=== PATIENT | male | born 1980 | race African-American/Black ===

== ENCOUNTER → 2018-03-13 | Outpatient (CLI) | payer OTHER | LOC: CAT 10:15 | DX: Z13.6 Encounter for screening for cardiovascular disorders (principal) ==

== ENCOUNTER → 2018-03-16 | Outpatient (CLI) | payer OTHER ==
[~2018-03-16] MED LIST: TRAZODONE HCL100 MG PO
--- NOTE | ~2018-03-16 | EXE ---
[facility] [address] [place] [address] STRESS ECHOCARDIOGRAM Name: GABE ALFONSO Room #: REG [facility]#: [id number] Admission: 03/16/18 Attend Phys: Yuri De La Torre MD Discharge: Date of : 84 Date of Service: 03/16/18 1509 Report #: [id number] THIS REPORT FOR: //name// APPROVED REPORT Study performed: 03/16/2018 13:49:05 Exam: Stress Echocardiogram Indication: Palpitations Patient Location: Echo lab Stress Nurse: Kathie Sharpe RN Status: routine Ht: 5 ft 7 in HR: 55 bpm BP: 144/92 mmHg Medical History Medical History: SOB Medications: No cardiac medications Allergies: No known drug allergies Cardiac Risk Factors: FHX of CAD Exercise History: Physically active Procedure The patient underwent an Exercise Stress Test using the Jovani Protocol. Blood pressure, heart rate, and EKG were monitored. An Echocardiogram was performed by civil cadd technician in four stages in quad fashion. At peak stress, four selected images were obtained and placed side by side with resting images for comparison. Stress Test Details Stress Test: Exercise stress testing was performed using a Jovani protocol. HR Resting HR: 57 bpm Max Heart Rate (APMHR): 185 bpm Max HR Achieved: 176 bpm Target HR (85% APMHR): 157 bpm % of APMHR: 95 Recovery HR: 91 bpm HR response to stress: Normal HR response to stress BP Resting BP: 144/92 mmHg Max BP: 140/75 mmHg Recovery BP: 140/[address] [facility] [address] [place] [address] STRESS ECHOCARDIOGRAM Name: GABE ALFONSO Room #: REG [facility]#: [id number] Admission: 03/16/18 Attend Phys: Yuri De La Torre MD Discharge: Date of : 84 Date of Service: 03/16/18 1509 Report #: [id number] Resting ECG: Sinus Rhythm Stress ECG: Sinus Rhythm, nonspecific ST-T abnormalities ST Change: Non-ischemic Maximum ST Deviation: 0.5 mm Clinical Reason for Termination: Maximal effort Stress Symptoms: none Exercise duration: 14 min 50 sec Highest Stage Achieved: Stage 5: 5.0 mph at 18% grade. Exercise capacity: 17.5 METs Pre-Stress Echo The resting Echocardiogram showed normal left ventricular contractility with an estimated Ejection Fraction of about 60-65%. Normal wall motion in all segments on baseline images. Post-Stress Echo The stress Echocardiogram showed normal left ventricular contractility with an estimated Ejection Fraction of about >70%. Normal augmentation of wall motion in all segments on post stress images. Clinical No clinical or ECG evidence for ischemia. Conclusion Clinical Response: Non-ischemic Exercise Capacity: Superior Stress ECG Response: Non-ischemic Stress Echo Images: Non-ischemic The left ventricle is normal in size and wall thickness in both the rest and stress images. Other Information Study Quality: Good <Conclusion> The left ventricle is normal in size and wall thickness in both the rest and stress images. <ELECTRONICALLY SIGNED> By: Yuri De La Torre MD 03/16/18 1509 1509 1509 Yuri De La Torre MD /INF
--- NOTE | ~2018-03-16 | 2DMMODE ---
[facility] [address] [place] [address] 2 D/M-MODE ECHOCARDIOGRAM Name: GABE ALFONSO Room #: REG [facility]#: [id number] Admission: 03/16/18 Attend Phys: Yuri De La Torre MD Discharge: Date of : 84 Date of Service: 03/16/18 1504 Report #: [id number] THIS REPORT FOR: //name// APPROVED REPORT Study performed: 03/16/2018 13:10:11 EXAM: Comprehensive 2D, Doppler, and color-flow Echocardiogram Patient Location: Echo lab Status: routine BSA: 1.91 BP: 144/92 mmHg Other Information Study Quality: Good Indications Dizziness and Vertigo Palpitations SOB 2D Dimensions RVDd: 37.53 mm LVEF(%): 67.52 (>50%) IVSd: 11.70 (7-11mm) LVOT Diam: 19.69 (18-24mm) LVDd: 47.01 mm PWd: 11.34 (7-11mm) Ascending Ao: 25.15 (22-36mm) LVDs: 29.38 (25-40mm) Aortic Root: 32.18 mm IVC: 17.00 mm Wren's LVEF: 67.52 % Volumes Left Atrial Volume (Systole) Single Plane 4CH: 36.11 mL Single Plane 2CH: 53.63 mL LA ESV Index: 25.00 mL/m2 Aortic Valve AoV Peak John.: 1.21 m/s AO Peak Gr.: 5.85 mmHg LVOT Max P.13 mmHg LVOT Max V: 0.88 m/s LORRIE Vmax: 2.22 cm2 Mitral Valve E/A Ratio: 1.6 [facility] [place] [place] [address] 2 D/M-MODE ECHOCARDIOGRAM Name: GABE ALFONSO Room #: [facility]#: [id number] Admission: 03/16/18 Attend Phys: Yuri De La Torre MD Discharge: Date of : 84 Date of Service: 03/16/18 1504 Report #: [id number] MV Decel. Time: 277.59 ms MV E Max John.: 0.68 m/s MV A John.: 0.43 m/s MV PHT: 80.50 ms IVRT: 106.11 ms Pulmonary Valve PV Peak John.: 0.91 m/s PV Peak Gr.: 3.31 mmHg Pulmonary Vein P Vein S: 0.51 m/s P Vein A: 0.23 m/s P Vein D: 0.51 m/s P Vein A Dur.: 124.6 msec P Vein S/D Ratio: 1.00 Tricuspid Valve RAP Estimate: 5.00 mmHg Left Ventricle The left ventricle is normal size. There is normal left ventricular wall thickness. The left ventricular systolic function is normal. The left ventricular ejection fraction is within the normal range. LVEF is 60-65%. The left ventricular diastolic function is normal. Right Ventricle The right ventricle is normal size. The right ventricular systolic function is normal. Atria The left atrium size is normal. The right atrium size is normal. Aortic Valve The aortic valve is normal in structure. No aortic regurgitation is present. There is no aortic valvular stenosis. Mitral Valve The mitral valve is normal in structure. Trace mitral regurgitation. No evidence of mitral valve stenosis. Tricuspid Valve The tricuspid valve is normal in structure. Trace tricuspid regurgitation. Unable to assess PA pressure. Pulmonic Valve The pulmonary valve is normal in structure. Mild pulmonic regurgitation. [facility] [address] [place] [address] 2 D/M-MODE ECHOCARDIOGRAM Name: GABE ALFONSO Room #: REG [facility]#: [id number] Admission: 03/16/18 Attend Phys: Yuri De La Torre MD Discharge: Date of : 84 Date of Service: 03/16/18 1504 Report #: [id number] Great Vessels The aortic root is normal in size. IVC is normal in size and collapses >50% with inspiration. Pericardium There is no pericardial effusion. <Conclusion> The left ventricle is normal size. There is normal left ventricular wall thickness. The left ventricular systolic function is normal. The left ventricular diastolic function is normal. The right ventricle is normal size. The left atrium size is normal. The right atrium size is normal. The aortic valve is normal in structure. Trace mitral regurgitation. Trace tricuspid regurgitation. <ELECTRONICALLY SIGNED> By: Yuri De La Torre MD 03/16/18 1504 1504 1504 Yuri De La Torre MD /INF
== END ==
LOC: CV 09:29
DX: R00.2 Palpitations (principal); R42 Dizziness and giddiness; R06.02 Shortness of breath

== ENCOUNTER 2018-03-18 07:52 | Inpatient (IN) | payer OTHER ==
[~2018-03-18] VITALS: Ht 170.2 cm; Wt 83.6 kg
--- NOTE | ~2018-03-18 | H ---
[facility] [place] [place] [address] HISTORY AND PHYSICAL Name: GABE ALFONSO Room #: 213-P [facility] [place] .R.#: [id number] Admission: 03/18/18 Attend Phys: Kristian Antoine MD, Discharge: 03/20/18 Date of : 84 Report #: [id number] THIS REPORT FOR: //name// CC: Kristian Taveras DATE OF SERVICE: 03/18/2018 HISTORY OF PRESENT ILLNESS: The patient is a 37-year-old black male. He has been seen by my partner, Dr. De La Torre and initially evaluated out earlier this month for some syncope, near syncopal events. Workup had so far included a normal echo and a normal stress echo. The patient for a few months had some post-micturition, near syncopal events, but had an event during the day not precipitated by any sort of straining or urination. I was called during the night with 7 second plus pauses at approximately 3 in the morning. This coincided when he got up and went to the bathroom, felt lightheaded, did urinate and then had to sit down as he nearly had bit of a jung out. He felt okay this morning. 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 The only medication he takes is trazodone at night. He has had a couple of other occurrences of this one while working and another episode watching soccer game. He otherwise has not been constitutionally sick and takes no AV node inhibiting medications. No significant alcohol, tobacco or drug use. ALLERGIES: No known drug allergies. PAST MEDICAL HISTORY: Positive for hypertriglyceridemia and a vasectomy and some recent history of post-micturition syncope and now near multiple recurrent presyncopal events. EKG, LVH with Q-waves in II and III, aVF. These were previously noted. FAMILY HISTORY: Negative for premature disease or sudden . REVIEW OF SYSTEMS: Negative except for as stated above. PHYSICAL EXAMINATION: VITAL SIGNS: Blood pressure 130/90, pulse 86. HEENT: Eyes reveal xanthelasmas. Pharynx is clear. NECK: Shows preserved upstrokes without JVD or bruits. LUNGS: Clear. CARDIOVASCULAR: Regular rate and rhythm. S1, S2. No murmur or gallop. There is a soft S4 noted. ABDOMEN: Soft. No HSM or abdominal bruit. No flank bruits. EXTREMITIES: No edema. Pulses were intact. MUSCULOSKELETAL: No gross joint deformity. [facility] [address] [place] [address] HISTORY AND PHYSICAL Name: GABE ALFONSO Sarita Room #: 213-P [facility]#: [id number] Admission: 03/18/18 Attend Phys: Kristian Antoine MD, Discharge: 03/20/18 Date of : 84 Report #: [id number] NEUROLOGIC: Intact. SKIN: Warm and dry without xanthoma or ulcer. ASSESSMENT: 1. Recurrent presyncopal/syncope. 2. History of intermittent heart block with 7+ second pauses noted on monitor. 3. Post-micturition syncope. 4. Cholesterol/triglyceridemia. RECOMMENDATIONS AND PLAN: We will place on a monitor. Initially, it sounds like this was a post-micturition issue, but now has been occurring without any straining or urination. He is becoming definitely symptomatic with this. Perhaps somewhat of a hypervagal but with him nearly multiple near falls and jung outs, permanent pacemaker would be indicated here in the backup mode. I will have electrophysiology service, Dr. Winchester see the patient and presumably proceed with permanent pacemaker Tuesday. Thank you for asking me to assist in the care of this patient. <ELECTRONICALLY SIGNED> By: Kristian Antoine MD, FACC 03/27/18 0942 0818 1713 Kristian Antoine MD, FACC /nt
--- NOTE | ~2018-03-18 | EKG ---
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1980 Requested By: Mejia Winchester Order Number: [id number] MD: Chandu Gonzalez Measurements Intervals [place] Rate: 56 P: 66 ND: 162 QRS: 21 QRSD: 99 T: -2 QT: 400 QTc: 387 Interpretive Statements Sinus bradycardia RSR' in V1 or V2, right VCD Borderline T abnormalities, inferior leads No previous ECG available for comparison Electronically Signed On 03-19-2018 14:13:07 CDT by Chandu Gonzalez [email or web address] <ELECTRONICALLY SIGNED> By: Chandu Gonzalez MD, [facility] 03/19/18 1413 1223 1223 Chandu Gonzalez MD, [facility] /EPI
--- NOTE | ~2018-03-18 | HC ---
[facility] [place] [address] CONSULTATION Name: GABE ALFONSO Room #: 213-P [facility]..#: [id number] Admission: 03/18/18 Attend Phys: Kristian Antoine MD, Discharge: 03/20/18 Date of : 84 Report #: [id number] THIS REPORT FOR: //name// CC: Kristian Taveras DATE OF SERVICE: 03/19/2018 ELECTROPHYSIOLOGY CONSULTATION REASON FOR CONSULTATION: Syncope. HISTORY OF PRESENT ILLNESS: The patient is a 37-year-old healthy gentleman who has recently been experiencing some palpitations. He reports that approximately 2 weeks ago on a Tuesday, he was at home, taking a nap when the baby started to cry. He went to check on the baby and got the baby dressed and then started feeling somewhat short of breath. He felt like his heart was racing. He has had problems with palpitations going on for a few years. He then felt some lightheadedness and some tingling on the left side of his face. This made him kind of nervous. He called his and then, he decided to call EMS, and an ambulance came to his house, took him to [facility] where he was evaluated in the ER and discharged. He has since seen Dr. De La Torre who performed an echocardiogram that showed normal LV size and function. He also underwent a stress echo that showed no evidence of ischemia, and he exercised 17 METs. He has had a cardiac surgeon for approximately 7-10 days. The patient denies any history of prior syncopal episodes. He does report that approximately 1 year ago, he woke up in the middle of the night to urinate. He said that prior to going to urinate, he was already lightheaded. He reports that he often wakes up in the middle of the night and feels lightheaded and will have to sit back down. On this episode 1 year ago, although he felt lightheaded, he made it to the bathroom and was standing up to urinate and as he was urinating, he started feeling more lightheaded and had a slide against the wall, but did not lose consciousness. The patient denies any other syncopal episodes throughout his life. 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 and again felt some heart racing, palpitations and some lightheadedness. He said he felt some shortness of breath associated with this and then sat down. His symptoms lasted for about 3-5 minutes and then resolved on its own. He reports that he was driving to another training session and still felt this lightheadedness, but no syncope. 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 His episode that resulted in admission here was again he woke up in the middle of the night, he was already lightheaded. He went to go urinate and as he was urinating, he started getting more lightheaded and felt like he was going to pass out. He sat down and caught his breath and then after he was called, they decided to come to the ER. He denies any problems with chest pain, [facility] [address] [place] [address] CONSULTATION Name: GABE ALFONSO Room #: 213-P [facility] [place] [facility]#: [id number] Admission: 03/18/18 Attend Phys: Kristian Antoine MD, Discharge: 03/20/18 Date of : 84 Report #: [id number] chest tightness, PND or orthopnea. PAST MEDICAL HISTORY: Includes hyperlipidemia. 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 He is . He uses no illicit drugs. He uses some protein shakes, but does not use any high dose caffeinated stimulants prior to his workouts. He does not use excessive alcohol. FAMILY HISTORY: Includes mother who in 2015, who had congestive heart failure, lupus, CAD with prior stents and has a father who has hypertension and a sister who has hypertension, but there is no history of sudden cardiac . ALLERGIES: None. MEDICATIONS: Include trazodone, which he started in August. He reports that he was having these lightheaded spells in the middle of the night prior to this, but they have become worse since August. REVIEW OF SYSTEMS: A 12-point review of systems was performed, and it was negative other than what I mentioned above. PHYSICAL EXAMINATION: VITAL SIGNS: Temperature is 36.9, pulse 46, respirations 19, blood pressure 124/78, sats are 100%. GENERAL: He is in no acute distress. HEENT: Oropharynx is clear. NECK: Supple, no thyromegaly. HEART: Regular rate and rhythm with no murmurs, rubs, gallops. LUNGS: Clear to auscultation bilaterally. ABDOMEN: Soft, nontender, nondistended with no hepatosplenomegaly. EXTREMITIES: No clubbing, cyanosis or edema. NEUROLOGICAL: Cranial nerves 2-12 are intact. I have reviewed his 12-lead EKG, which shows normal sinus rhythm with normal intervals, no prolonged QT noted. His EKG today shows sinus bradycardia, heart rate 56 beats per minute with QRS duration 99 milliseconds, QTc 387 milliseconds and no ischemic changes. His telemetry shows periods of sinus bradycardia down into the mid 40s, this is while resting. ASSESSMENT: 1. Palpitations. 2. Post-micturition syncope. In summary, the patient is a 37-year-old with evidence of a normal EKG, normal echocardiogram and normal stress test with no evidence of ischemia. The patient is having classic symptoms consistent with post-micturition syncope. I think [facility] [address] [place] [address] CONSULTATION Name: GABE ALFONSO Room #: 213-P [facility].#: [id number] Admission: 03/18/18 Attend Phys: Kristian Antoine MD, Discharge: 03/20/18 Date of : 84 Report #: [id number] that these episodes are being exacerbated by his recent initiation of trazodone, which can cause orthostatic hypotension. I believe in that a young individual who already has a low resting heart rate due to athletic heart and low blood pressure, this combination is likely resulting in his post-micturition syncope. We have discussed lifestyle modifications to prevent further episodes. I would recommend discontinuation of trazodone. I have recommended increased fluid intake. I have recommended that in the middle of the night that he should be aware that he will have a lower heart rate and blood pressure due to the body being in a post sleep state. This will obviously predispose to orthostasis. I discussed that in the middle of the night, he should sit on the bed for 3-5 minutes before he urinates. When he goes to urinate, he needs to urinate sitting down. I discussed that these episodes of post-micturition syncope are associated with both low blood pressure and the low heart rates, which were noted on the cardiac surgeon. Apparently, there was a 7-second pause in the midst of urinating. We did discuss pacemaker implantation. We discussed that this may help with the heart rate, but will not necessarily prevent all episodes as there is also a component of low blood pressure that occurs with post-micturition syncope. We discussed the details of pacemaker implantation and the risks of this, which include, but not limited to bleeding, infection, vascular damage, cardiac perforation and pneumothorax. We also discussed the future risks given his young age of lead damage needing multiple generator exchanges and the need for likely lead revisions with surgical interventions and the risks associated with this procedure. As such, I have recommended that we try these lifestyle modifications initially. We discussed that a pacemaker is always an option as well. With regards to these palpitations that he has been experiencing, he may also have a component of supraventricular tachycardia and we discussed the options for managing this. Again, I will review the monitor on Tuesday morning and any management of supraventricular tachycardia will depend on what is found on his cardiac monitors. Thank you for allowing me to participate in his care. <ELECTRONICALLY SIGNED> By: Mejia Winchester MD 03/27/18 1456 1228 1845 Mejia Winchester MD /nt
[2018-03-18 08:05] VITALS: BP 131/97
[2018-03-18] MEDS ORDERED: TRAZODONE HCL100 MG PO (09:06)
[2018-03-18 09:37] LABS: HEMATOCRIT 44.2 % (42.0-52.0); HEMOGLOBIN 14.9 gm/dL (14.0-18.0); MCH 28.2 pg (26.0-34.0); MCHC 33.7 g/dL (28.0-37.0); MCV 83.6 fL (80.0-100.0); RBC 5.28 mil/uL (4.50-6.00); RDW 13.8 % (10.5-14.5); WBC 3.7 thou/uL (4.0-11.0)
[2018-03-18 09:52] LABS: ALBUMIN 3.6 g/dL (3.4-5.0); CALCIUM 8.6 mg/dL (8.5-10.1); CREATININE 1.4 mg/dL (0.7-1.3); TOTAL BILIRUBIN 0.5 mg/dL (<0.1-1.0); TOTAL PROTEIN 7.4 g/dL (6.4-8.2)
[2018-03-18 11:35] VITALS: BP 138/83
[2018-03-18 15:35] VITALS: BP 131/87
[2018-03-18 20:00] VITALS: BP 139/73
[2018-03-19 00:39] VITALS: BP 148/89
[2018-03-19 05:03] VITALS: BP 132/85
[2018-03-19 07:47] VITALS: BP 124/78
[2018-03-19 11:20] VITALS: BP 124/86
[2018-03-19 15:50] VITALS: BP 144/80
[2018-03-19 19:36] VITALS: BP 142/92
[2018-03-20 05:08] VITALS: BP 159/109
[2018-03-20 07:25] VITALS: BP 141/82
[2018-03-20 11:20] VITALS: BP 141/82
[2018-03-20 11:25] VITALS: BP 123/70
[2018-03-20 13:08] VITALS: BP 141/82
== END 2018-03-20 13:23 | disposition home or self-care (01) | DRG 309 ==
LOC: 2N 07:52
PROVIDERS: Internal Medicine Cardiovascular Disease
DX: I49.9 Cardiac arrhythmia, unspecified (principal); I47.1 Supraventricular tachycardia; I45.9 Conduction disorder, unspecified; E78.1 Pure hyperglyceridemia; E78.00 Pure hypercholesterolemia, unspecified; Z82.49 Family history of ischemic heart disease and other diseases of the circulatory system; Z82.69 Family history of other diseases of the musculoskeletal system and connective tissue; Z87.891 Personal history of nicotine dependence
CPT/HCPCS: 10081

== ENCOUNTER → 2020-12-12 | Outpatient (CLI) | payer OTHER | LOC: CAT 11:31 | DX: Z13.6 Encounter for screening for cardiovascular disorders (principal); I25.10 Atherosclerotic heart disease of native coronary artery without angina pectoris; E78.00 Pure hypercholesterolemia, unspecified ==